=== PATIENT | male | born 1965 | race Caucasian/White ===

== ENCOUNTER 2021-11-07 10:57 | Day surgery (SDC) | payer OTHER, SELFPAY ==
[2021-11-07] MEDS ORDERED: Fluorouracil 100 MG, Enoxaparin Sodium 25 MG, EPINEPHrine 0.3 MG in Ophthalmic Irrigati... IRR SCH (11:00)
[2021-11-07] MEDS ORDERED: Phenylephrine 2.5% Ophth Soln 5 ML BOT ONE (11:27)
[2021-11-07] MEDS ORDERED: Cyclopentolate 1% Opth Drop 2 ML BOT ONE (11:27)
[2021-11-07] MEDS ORDERED: fentaNYL Citrate/PF 100 MCG/2 ML SYRINGE ONE (13:28)
[2021-11-07] MEDS ORDERED: Midazolam HCl 2 mg/2 ml Vial ONE (13:28)
[2021-11-07] MEDS ORDERED: Bupivacaine 0.75% 10 ML VIAL ONE (13:30)
[2021-11-07] MEDS ORDERED: CEFAZOLIN 1 GM VIAL ONE (13:30)
[2021-11-07] MEDS ORDERED: Enoxaparin Sodium 30 MG/0.3 ML SYRINGE ONE (13:30)
[2021-11-07] MEDS ORDERED: Lidocaine 1% PF 5 ML VIAL ONE (13:30)
[2021-11-07] MEDS ORDERED: Glycopyrrolate 0.2 MG/ML 5 ML SYRINGE ONE (13:30)
[2021-11-07] MEDS ORDERED: PROPOFOL 200 MG/20 ML VIAL ONE (13:30)
[2021-11-07] MEDS ORDERED: Maxitrol 0.1% Opth Oint 3.5 GM TUBE ONE (13:30)
[2021-11-07] MEDS ORDERED: Lidocaine 4% PF 5 ML AMP ONE (13:30)
[2021-11-07] MEDS ORDERED: Triamcinolone 40 MG/ML VIAL ONE (13:30)
== END 2021-11-07 15:10 | disposition home or self-care (01) ==
LOC: SDC 10:57
PROVIDERS: ATTEND Ophthalmology Retina Specialist
PROC: 08T43ZZ Resection of Right Vitreous, Percutaneous Approach (ICD-10-PCS; principal; 2021-11-07)
DX: H33.011 Retinal detachment with single break, right eye (principal); I10 Essential (primary) hypertension; E78.5 Hyperlipidemia, unspecified; I48.91 Unspecified atrial fibrillation; G47.30 Sleep apnea, unspecified; E03.9 Hypothyroidism, unspecified; E66.01 Morbid (severe) obesity due to excess calories; Z68.43 Body mass index [BMI] 50.0-59.9, adult; Z20.822 Contact with and (suspected) exposure to COVID-19
CPT/HCPCS: 67025; 87811; J0171; J0690; J1650; J2250; J2704; J3301; J3490; J9190